=== PATIENT | male | born 1945 | race Caucasian/White ===

== ENCOUNTER 2018-07-12 12:05 | Emergency (ER) | payer MEDICARE, OTHER ==
--- NOTE | 2018-07-12 12:33 | EDM.PDOC ---
ED HPI GENERAL MEDICAL PROBLEM - General Chief Complaint: General Stated Complaint: [facility] Time Seen by Provider: 07/12/18 12:08 - History of Present Illness INITIAL COMMENTS - FREE TEXT/NARRATIVE: 73-year-old male brought into the emergency room after having what sounds like a near syncopal event while getting a blood draw at the [facility]. His blood pressure was elevated and his pulse was noted to be mildly elevated Patient is back to baseline at this time but he became lightheaded dizzy and developed numbness in both of his hands he became unsteady on his feet. Patient has history of a replaced mitral valve he has atrial fibrillation and he is on Coumadin. He denies any headache or recent head trauma. The patient is on Lopressor however he takes this on a very limited basis depending on what his blood pressure is doing. He's not any chest pain or chest pressure no shortness of breath no reading difficulties. He does complain of chronic sinus congestion thought to be seasonal allergies. - Related Data Allergies Allergy/AdvReac Type Severity Reaction Status Date / Time No Known Allergies Allergy Verified 07/12/18 12:24 Home Meds: Home Meds Metoprolol Succinate [Toprol Xl] 25 mg PO Q24H #15 tab.er.24h 07/12/18 [Rx] Metoprolol Tartrate 25 mg PO BEDTIME 07/12/18 [History] Metoprolol Tartrate 37.5 mg PO DAILY 07/12/18 [History] Warfarin [Coumadin] 4 mg PO DAILY 07/12/18 [History] Past Medical History Cardiovascular History: Reports: Afib, Hypertension, [place] - Past Surgical History Cardiovascular Surgical History: Reports: Valve Replacement GI Surgical History: Reports: Cholecystectomy, ERCP ED ROS GENERAL - Review of Systems Review Of Systems: See Below Constitutional: Reports: Weakness. Denies: Fever, Chills, Malaise HEENT: Reports: Rhinitis, Sinus Problem Respiratory: Reports: No Symptoms Cardiovascular: Reports: No Symptoms Endocrine: Reports: No Symptoms GI/Abdominal: Reports: No Symptoms : Reports: No Symptoms Musculoskeletal: Reports: No Symptoms Skin: Reports: No Symptoms Neurological: Reports: Other (Possible near syncopal event). Denies: No Symptoms Psychiatric: Reports: No Symptoms Hematologic/Lymphatic: Reports: No Symptoms ED EXAM, GENERAL - Physical Exam Exam: See Below Exam Limited By: No Limitations General Appearance: Alert, No Apparent Distress, Other (Alert and oriented) Eye Exam: Bilateral Eye: Normal Inspection Ears: Normal External Exam, Normal Canal, Hearing Grossly Normal, Normal TMs Nose: Normal Inspection, Normal Mucosa, No Blood, Other (No sinus tenderness with sinus percussion) Throat/Mouth: Normal Inspection, Normal Lips, Normal Gums, Normal Oropharynx, Normal Voice, No Airway Compromise, Other (Teeth are severely worn down and in poor shape) Head: Atraumatic, Normocephalic Neck: Normal Inspection, Supple, Non-Tender, Full Range of Motion. No: Tender Midline Respiratory/Chest: No Respiratory Distress, Lungs Clear, Normal Breath Sounds Cardiovascular: Regular Rate, Rhythm, No Edema, No Murmur GI/Abdominal: Normal Bowel Sounds, Soft, Non-Tender Back Exam: Normal Inspection. No: CVA Tenderness (L), CVA Tenderness (R) Extremities: Normal Inspection, Non-Tender, No Pedal Edema Neurological: Alert, Oriented, Normal Cognition EKG INTERPRETATION EKG Date: 07/12/18 Rhythm: A-Fib Ballard: LAD-Left Ballard Deviation P-Wave: Absent QRS: Other (Intraventricular conduction delay and Q waves in the inferior and anterior leads) ST-T: Normal QT: Normal Comparison: NA - No Prior EKG EKG Interpretation Comments: Abnormal no priors for comparison Course - Vital Signs Last Recorded V/S: Last Vital Signs Temp 36.8 C 07/12/18 12:19 Pulse 85 07/12/18 14:27 Resp 18 07/12/18 14:27 BP 140/93 H 07/12/18 14:27 Pulse Ox 98 07/12/18 14:27 - Orders/Labs/Meds Orders: Active Orders 24 hr Category Date Time Status EKG Documentation Completion [RC] STAT Care 07/12/18 12:17 Active Labs: Laboratory Tests 07/12/18 07/12/18 07/12/18 Range/Units 13:15 13:15 13:15 WBC 7.68 (4.23-9.07) K/mm3 RBC 5.11 (4.63-6.08) M/mm3 Hgb 14.5 (13.7-17.5) gm/L Hct 42.7 (40.1-51.0) % MCV 83.6 (79.0-92.2) fl MCH 28.4 (25.7-32.2) pg MCHC 34.0 (32.2-35.5) g/dl RDW Std Deviation 42.8 (35.1-43.9) fL Plt Count 197 (163-337) K/mm3 MPV 10.6 (9.4-12.3) fl Neutrophils % (Manual) 59 (40-60) % Band Neutrophils % 0 (0-10) % Lymphocytes % (Manual) 29 (20-40) % Atypical Lymphs % 0 % Monocytes % (Manual) 10 (2-10) % Eosinophils % (Manual) 2 (0.8-7.0) % Basophils % (Manual) 0 L (0.2-1.2) Platelet Estimate Adequate RBC Morph Comment Normal PT 37.2 H (9.5-12.1) SECONDS INR 3.50 Sodium 142 (136-145) mEq/L Potassium 4.0 (3.5-5.1) mEq/L Chloride 107 (98-107) mEq/L Carbon Dioxide 24 (21-32) mEq/L Anion Gap 15.0 (5-15) BUN 9 (7-18) mg/dL Creatinine 1.0 (0.7-1.3) mg/dL Est Cr Clr Drug Dosing TNP Estimated GFR (MDRD) > 60 (>60) mL/min BUN/Creatinine Ratio 9.0 L (14-18) Glucose 99 (83-115) mg/dL Calcium 9.3 (8.5-10.1) mg/dL Total Bilirubin 0.7 (0.2-1.0) mg/dL AST 21 (15-37) U/L ALT 21 (16-63) U/L Alkaline Phosphatase 82 (46-116) U/L Troponin I < 0.017 (0.00-0.056) ng/mL Total Protein 7.4 (6.4-8.2) g/dl Albumin 3.5 (3.4-5.0) g/dl Globulin 3.9 gm/dL Albumin/Globulin Ratio 0.9 L (1-2) - Re-Assessments/Exams Free Text/Narrative Re-Assessment/Exam: 07/12/18 12:44 Patient evaluated labs ordered nature sounds like he may have had a vasovagal type reaction with his blood draw however the possibilities are endless. On concern with initial examination some mild tachypnea he was 20 on my exam I just rechecked him he was 21 on the monitor he was 28 after getting wheeled in from the ambulance. We'll see what his INR is before doing anything with this he is not having any chest pain chest pressure breathing difficulties or shortness of breath his pulse rate goes from the 80s to low 100s. Did discuss some taken his Lopressor intermittently as he may be taking this for rate control. Since he hasn't taken it in 3 days and may be reasonable just to start him on Toprol-XL and 25 mg a day and then have him follow this very closely in the clinic. Upon arrival to the emergency room he's symptom-free and stable. 07/12/18 13:47 Waiting on labs patient's doing fine 07/12/18 15:[address] nonacute chest x-ray nonacute. Patient case discussed with Bernice Deal at the [facility]. Patient be started on Toprol-XL 25 mg 1 nightly the patient will take this every day. I anticipate he will need a dosage adjustment. And I explained to him in no uncertain terms the importance of taking this daily. Departure - Departure Time of Disposition: 15:55 Disposition: Home, Self-Care 01 Clinical Impression: Near syncope - Discharge Information Prescriptions: Metoprolol Succinate [Toprol Xl] 25 mg PO Q24H #15 tab.er.24h Referrals: PCP,None [Primary Care Provider] - Forms: ED Department Discharge Additional Instructions: Return to the emergency room with any questions problems worsening symptoms. Follow-up in the [facility] a week from today for recheck your blood pressure your pulse rate and they will need to recheck your INR. Stop the Lopressor, or metoprolol that you're taking now on an intermittent basis. Start the long-acting metoprolol 1 daily every day at night it is to help control your pulse rate with your A. fib and helps with blood pressure. I anticipate you may need a dosage change in the clinic. - My Orders Last 24 Hours: My Active Orders 07/12/18 12:17 EKG Documentation Completion [RC] STAT - Assessment/Plan Last 24 Hours: My Active Orders 07/12/18 12:17 EKG Documentation Completion [RC] STAT
--- NOTE | 2018-07-12 12:53 | CT ---
Head CT Technique: Multiple axial sections through the brain were obtained. Intravenous contrast was not utilized. Comparison: No previous intracranial imaging. Findings: Ventricles along with basal cisterns and sulci over the convexities are moderately prominent. No abnormal parenchymal densities are seen. No evidence of intracranial hemorrhage. No midline shift or mass effect is seen. Opacified left maxillary sinus is seen which extends into the left ethmoid and frontal sinuses. Possible air-fluid level within the left frontal sinus. Mild mucosal thickening is noted within the right side of the sphenoid sinus. No acute calvarial abnormality is seen. Impression: 1. Sinus findings suspicious for acute on chronic sinusitis. 2. Generalized atrophy. 3. No acute intracranial abnormality is identified. Diagnostic code #3
--- NOTE | 2018-07-12 15:31 | CR ---
Chest: Portable view of the chest was obtained. Comparison: No prior chest x-ray. Heart size is normal. Mild tortuosity of the thoracic aorta is seen. Lungs are clear. Bony structures are grossly intact. Previous sternotomy is noted. Impression: 1. Nothing acute is seen on portable chest x-ray. Diagnostic code #2
== END 2018-07-12 16:05 | disposition home or self-care (01) ==
LOC: JD.ED 12:05
DX: R55 Syncope and collapse (principal); I10 Essential (primary) hypertension; I48.91 Unspecified atrial fibrillation; I25.2 Old myocardial infarction; Z90.49 Acquired absence of other specified parts of digestive tract; Z79.01 Long term (current) use of anticoagulants
CPT/HCPCS: 36415; 70450; 70450-26; 71045; 71045-26; 80053; 84484; 85007; 85027; 85610; 93005; 93010; 99283; 99285-25